=== PATIENT | male | born 1950 | race Caucasian/White ===

== ENCOUNTER 2018-09-17 23:48 | Inpatient (IN) | payer OTHER ==
[2018-09-18] MEDS ORDERED: BISACODYL (EC) 5 MG TAB PO (00:30)
[2018-09-18] MEDS ORDERED: DOCUSATE SODIUM 100 MG CAP PO (00:30)
[2018-09-18] MEDS ORDERED: ONDANSETRON 4 MG INJ IV (00:30)
[2018-09-18] MEDS ORDERED: NACL 0.9% 3 ML SYG IV (00:30)
[2018-09-18] MEDS ORDERED: ACETAMINOPHEN 325 MG TAB PO (00:30)
[2018-09-18 01:12] LABS: ADD MAN DIFF? NO
[2018-09-18 01:14] LABS: BASOPHILS % 0.2 % (0.0-2.0); EOSINOPHILS # 0.1 10^3/ul (0.0-0.5); EOSINOPHILS % 2.2 % (0.0-7.0); HEMATOCRIT 46.6 % (42.0-52.0); HEMOGLOBIN 15.4 g/dl (14.0-18.0); LYMPHOCYTES % 38.8 % (15.0-51.0); MEAN CORPUSCULAR HEMOGLOBIN 30.1 pg (29.0-33.0); MEAN CORPUSCULAR VOLUME 91.2 fl (82.0-101.0); MEAN PLATELET VOLUME 9.3 fl (7.4-10.4); MONOCYTE # 0.4 10^3/ul (0.3-0.9); MONOCYTES % 8.3 % (0.0-11.0); NEUTROPHIL # 2.5 10^3/ul (1.6-7.5); NEUTROPHILS % 50.1 % (39.0-77.0); PLATELET COUNT 298 10^3/UL (140-415); RED BLOOD COUNT 5.11 10^6/ul (4.70-6.10); RED CELL DISTRIBUTION WIDTH 12.4 % (11.5-14.5)
[2018-09-18 01:14] LABS: WHITE BLOOD COUNT 5.1 10^3/ul (4.8-10.8)
[2018-09-18 01:49] LABS: ALANINE AMINOTRANSFERASE 34 IU/L (13-69); ALBUMIN 3.9 g/dl (3.3-4.9); ALBUMIN/GLOBULIN RATIO 1.21; ALKALINE PHOSPHATASE 58 IU/L (42-121); ANION GAP 9 (5-13); ASPARTATE AMINO TRANSFERASE 47 IU/L (15-46); BILIRUBIN,INDIRECT 0.3 mg/dl (0-1.1); BILIRUBIN,TOTAL 0.3 mg/dl (0.2-1.3); BLOOD UREA NITROGEN 19 mg/dl (7-20); CALCIUM 9.1 mg/dl (8.4-10.2); CARBON DIOXIDE 29 mmol/L (21-31); CHLORIDE 105 mmol/L (97-110); CREATININE 0.84 mg/dl (0.61-1.24); Estimated GFR > 60 mL/min (>60); GLUCOSE 113 mg/dl (70-220); POTASSIUM 4.1 mmol/L (3.5-5.1); SODIUM 143 mmol/L (135-144); TOTAL PROTEIN 7.1 g/dl (6.1-8.1)
[2018-09-18 06:56] LABS: MAGNESIUM 2.2 mg/dl (1.7-2.5)
[2018-09-18 06:56] LABS: CHOL/HDL RATIO 6.2 RATIO; CHOLESTEROL 243 mg/dl (100-200); HDL CHOLESTEROL 39 mg/dl (30-78); LDL CHOLESTEROL,CALCULATED 172 mg/dl; TRIGLYCERIDES 162 mg/dl (0-149)
[2018-09-18 07:23] LABS: HEMOGLOBIN A1C 5.4 % (0-5.9)
[2018-09-18] MEDS ORDERED: MECLIZINE 12.5 MG TAB PO (10:00)
[2018-09-18 11:26] LABS: PLATELET COUNT 329 10^3/UL (140-415)
[2018-09-18 11:49] LABS: PHOSPHORUS 2.7 mg/dl (2.5-4.9)
[2018-09-18 11:51] LABS: INR 0.88; PT RATIO 0.9
[2018-09-18 11:52] LABS: PARTIAL THROMBOPLASTIN TIME 35.4 Sec (23.0-35.0)
[2018-09-18 11:56] LABS: THROMBIN TIME 16.6 SEC (13.8-19.1)
[2018-09-18 12:02] LABS: TROPONIN-I < 0.012 ng/ml (0.000-0.120)
[2018-09-18] MEDS: ASPIRIN 81 MG TAB PO (12:20)
[2018-09-18 12:27] LABS: ERYTHROCYTE SEDIMENTATION RATE 4 mm/Hr (0-20)
[2018-09-18 14:35] LABS: ADD UMIC NO; UR ASCORBIC ACID NEGATIVE (NEGATIVE); UR BILIRUBIN (Dip) NEGATIVE (NEGATIVE); UR BLOOD (Dip) NEGATIVE (NEGATIVE); UR CLARITY CLEAR (CLEAR); UR COLOR YELLOW (YELLOW); UR GLUCOSE (Dip) NEGATIVE (NEGATIVE); UR KETONES (Dip) NEGATIVE (NEGATIVE); UR LEUKOCYTE ESTERASE (Dip) NEGATIVE Leu/ul (NEGATIVE); UR NITRITE (Dip) NEGATIVE (NEGATIVE); UR SPECIFIC GRAVITY (Dip) 1.021 (1.003-1.030); UR TOTAL PROTEIN (Dip) NEGATIVE (NEGATIVE); UR UROBILINOGEN (Dip) 1+ mg/dL (NEGATIVE)
[2018-09-18 14:49] LABS: AMPHETAMINE/METHAMPHETAMINE Negative (NEGATIVE); BARBITURATES Negative (NEGATIVE); BENZODIAZEPINES Negative (NEGATIVE); CANNABINOIDS Negative (NEGATIVE); COCAINE Negative (NEGATIVE); OPIATES Negative (NEGATIVE)
[2018-09-18] MEDS: ATORVASTATIN 80 MG TAB PO (20:21)
[2018-09-18 22:16] LABS: RAPID PLASMA REAGIN NONREACTIVE (NR)
[2018-09-19 07:02] LABS: ADD MAN DIFF? NO
[2018-09-19 07:22] LABS: WHITE BLOOD COUNT 5.6 10^3/ul (4.8-10.8)
[2018-09-19 07:22] LABS: BASOPHILS % 0.4 % (0.0-2.0); EOSINOPHILS # 0.1 10^3/ul (0.0-0.5); EOSINOPHILS % 1.8 % (0.0-7.0); HEMATOCRIT 46.6 % (42.0-52.0); HEMOGLOBIN 15.5 g/dl (14.0-18.0); LYMPHOCYTES # 1.9 10^3/ul (0.8-2.9); LYMPHOCYTES % 33.2 % (15.0-51.0); MEAN CORPUSCULAR HEMOGLOBIN 30.2 pg (29.0-33.0); MEAN CORPUSCULAR HGB CONC 33.3 g/dl (32.0-37.0); MEAN CORPUSCULAR VOLUME 90.8 fl (82.0-101.0); MEAN PLATELET VOLUME 9.7 fl (7.4-10.4); MONOCYTE # 0.5 10^3/ul (0.3-0.9); MONOCYTES % 8.2 % (0.0-11.0); NEUTROPHIL # 3.1 10^3/ul (1.6-7.5); PLATELET COUNT 299 10^3/UL (140-415); RED BLOOD COUNT 5.13 10^6/ul (4.70-6.10); RED CELL DISTRIBUTION WIDTH 12.6 % (11.5-14.5)
[2018-09-19 07:46] LABS: ALANINE AMINOTRANSFERASE 40 IU/L (13-69); ALBUMIN 3.8 g/dl (3.3-4.9); ALBUMIN/GLOBULIN RATIO 1.18; ALKALINE PHOSPHATASE 59 IU/L (42-121); ANION GAP 9 (5-13); ASPARTATE AMINO TRANSFERASE 40 IU/L (15-46); BILIRUBIN,INDIRECT 0.5 mg/dl (0-1.1); BILIRUBIN,TOTAL 0.5 mg/dl (0.2-1.3); BLOOD UREA NITROGEN 18 mg/dl (7-20); CALCIUM 8.9 mg/dl (8.4-10.2); CARBON DIOXIDE 26 mmol/L (21-31); CHLORIDE 106 mmol/L (97-110); CREATININE 0.92 mg/dl (0.61-1.24); Estimated GFR > 60 mL/min (>60); GLUCOSE 97 mg/dl (70-220); POTASSIUM 4.2 mmol/L (3.5-5.1); SODIUM 141 mmol/L (135-144)
[2018-09-19] MEDS: ASPIRIN 81 MG TAB PO (08:08)
== END 2018-09-19 17:00 | disposition home or self-care (01) | DRG 69 ==
LOC: 6WM 23:48
DX: G45.9 Transient cerebral ischemic attack, unspecified (principal); R42 Dizziness and giddiness; H93.19 Tinnitus, unspecified ear; E78.5 Hyperlipidemia, unspecified
CPT/HCPCS: 70544; 70548; 70553; 71045; 80053; 80061; 80307; 81003; 83036; 83735; 84100; 84443; 84484; 85025; 85049; 85610; 85651; 85670; 85730; 86592; 93306; 93880; 97161; 97166